=== PATIENT | male | born 1995 | race Caucasian/White ===

== ENCOUNTER 2018-09-28 23:42 | Emergency (ER) | payer OTHER ==
[2018-09-28 23:47] VITALS: BP 111/61; PULSE 92; TEMP 98.4; BMI 26.6
[2018-09-29] MEDS ORDERED: KETOROLAC TROMETHAMINE 30 MG/1 ML VIAL IM ONE (00:39)
[2018-09-29] MEDS ORDERED: KETOROLAC TROMETHAMINE 30 MG/1 ML VIAL ONE (00:44)
--- NOTE | 2018-09-29 01:14 | PDOC ---
History of Present Illness - General Chief Complaint: Abscess Boil Stated Complaint: CYST ON LOWER BACK Time Seen by Provider: 09/29/18 00:21 History Source: Patient Exam Limitations: No Limitations - History of Present Illness Initial Comments: 09/29/18 01:08 HISTORY OF PRESENT ILLNESS: 23-year-old male denies medical history presents emergency department for evaluation of "bump" noted to his lower back. Patient denies any fevers or chills. He has not sought care prior to this event. There is no discharge or drainage according to the patient No recent travel or sick contacts. PAST MEDICAL HISTORY: Denies past medical history SURGICAL HISTORY: Denies ALLERGIES: No known drug allergies REVIEW OF SYSTEMS General/Constitutional: Denies fever or chills. Denies weakness, weight change. HEENT: Denies change in vision. Denies ear pain or discharge. Denies sore throat. Cardiovascular: Denies chest pain or shortness of breath. Respiratory: Denies cough, wheezing, or hemoptysis. Gastrointestinal: Denies nausea, vomiting, diarrhea or constipation. Denies rectal bleeding. Genitourinary: Denies dysuria, frequency, or change in urination. Musculoskeletal: Denies joint or muscle swelling or pain. Denies neck or back pain. Skin and breasts: see HPI Neurologic: Denies headache, vertigo, loss of consciousness, or loss of sensation. Psychiatric: Denies depression or anxiety. Endocrine: Denies increased thirst. Denies abnormal weight change. Hematologic/Lymphatic: Denies anemia, easy bleeding, or history of blood clots. Allergic/Immunologic: Denies hives or skin allergy. Denies latex allergy. PHYSICAL EXAM General Appearance: Well-appearing, appropriately dressed. No apparent distress , no intoxication. Respiratory/Chest: Lungs CTAB. No shortness of breath, chest tenderness, respiratory distress, accessory muscle use. No crackles, rales, rhonchi, stridor , wheezing, dullness Cardiovascular: RRR. S1, S2. No JVD, murmur, bradycardia, tachycardia. Integumentary: 3 cm x 2 cm ovoid area of fluctuance present at the cleft. 3.5 cm x 2.5 cm ovoid area of induration present. 09/29/18 01:15 Past History - Past Medical History Allergies/Adverse Reactions: Allergies Allergy/AdvReac Type Severity Reaction Status Date / Time No Known Allergies Allergy Verified 09/29/18 00:42 Home Medications: Ambulatory Orders NK [No Known Home Medication] 09/29/18 - Suicide/Smoking/Psychosocial Hx Smoking History: Unknown if ever smoked *Physical Exam - Vital Signs Last Vital Signs Temp Pulse Resp BP Pulse Ox 98.4 F 92 H 20 111/61 95 09/28/18 23:44 09/28/18 23:44 09/28/18 23:44 09/28/18 23:44 09/28/18 23:44 Procedures - Consent Consent obtained: Verbal, From Patient - Incision and Drainage I&D Site: Bilateral: Other (pilonidal abscess at gluteal cleft) Betadine cleansed: Yes Anesthesia: 1% Lidocaine Volume(ml): 5 Blade Size: 11 Attempts: 1 Iodinated Packin/ in Complications: none Dressing: Yes (DSD) Progress: 09/29/18 01:14 pt tolerated well. Abscess wall removed. Medical Decision Making - Medical Decision Making 09/29/18 01:08 A/P: 23-year-old male with pilonidal abscess Toradol 30 mg IM I and D-see procedure note for details Wound culture As there is no cellulitis present I will defer antibiotics at this time. Patient aware that he may be started on antibiotics one wound culture returns and based on evaluation of abscess when he returns in 2 days. Discharge home 09/29/18 01:17 *DC/Admit/Observation/Transfer Diagnosis at time of Disposition: Pilonidal abscess of cleft - Discharge Dispostion Disposition: HOME Condition at time of disposition: Stable Decision to Admit order: No - Referrals Referrals: Sara Odell [Primary Care Provider] - - Patient Instructions Printed Discharge Instructions: DI for Incision and Drainage of a Skin Abscess Additional Instructions: With packing present in the wound that was done today. Do not remove this packing. If it comes out on its own that is acceptable. Return to your primary doctor or the emergency department in 2 days for reevaluation of wound. Return to emergency department sooner if he develop any fevers, chills, recurrent pain, discharge or drainage from the wounds, redness or streaking under back or for any other concerns. Thank you very much for choosing us to provide your emergent health care needs. - Post Discharge Activity Forms/Work/School Notes: Back to Work
== END 2018-09-29 01:34 | disposition home or self-care (01) ==
LOC: JER 23:42
PROC: 3E0233Z Introduction of Anti-inflammatory into Muscle, Percutaneous Approach (ICD-10-PCS; principal; 2018-09-28)
PROC: 0H98XZZ Drainage of Buttock Skin, External Approach (ICD-10-PCS; 2018-09-28)
DX: L05.01 Pilonidal cyst with abscess (principal)
CPT/HCPCS: 10080; 87070; 87076; 87077; 87205; 96372; 99282-25

== ENCOUNTER 2018-10-01 15:25 | Emergency (ER) | payer OTHER ==
--- NOTE | 2018-10-01 15:41 | PDOC ---
Rapid Medical Evaluation Chief Complaint: Wound Time Seen by Provider: 10/01/18 15:40 Medical Evaluation: Allergies Allergy/AdvReac Type Severity Reaction Status Date / Time No Known Allergies Allergy Verified 10/01/18 15:41 10/01/18 15:41 I have performed a brief in-person evaluation of this patient. The patient presents with a chief complaint of: Pertinent physical exam findings: I have ordered the following: The patient will proceed to the ED for further evaluation.
[2018-10-01 15:43] VITALS: BP 127/79; PULSE 89; TEMP 98.8; BMI 26.6
--- NOTE | 2018-10-01 15:45 | PDOC ---
Rapid Medical Evaluation Chief Complaint: Wound Time Seen by Provider: 10/01/18 15:40 Medical Evaluation: Allergies Allergy/AdvReac Type Severity Reaction Status Date / Time No Known Allergies Allergy Verified 10/01/18 15:41 10/01/18 15:43 I have performed a brief in-person evaluation of this patient. The patient presents with a chief complaint of:wound check, s/p I&D 2 days ago, (normal skin darlene on wound cx), here for wound check. Pain improved. No f/c. [id number] on abx Pertinent physical exam findings:Stable and well rylan, rest of exam deferred I have ordered the following:nothing The patient will proceed to the ED for further evaluation. Discharge Disposition - Diagnosis Wound check, abscess - Referrals - Patient Instructions - Post Discharge Activity
--- NOTE | 2018-10-01 16:21 | PDOC ---
History of Present Illness - General Chief Complaint: Wound Stated Complaint: PACKING REMOVAL Time Seen by Provider: 10/01/18 15:40 - History of Present Illness Initial Comments: 10/01/18 16:19 23-year-old male presents for a wound check. He had a pilonidal abscess drained 2 days ago here and he is not on antibiotics. He started to develop chills yesterday. No night sweats no fevers Past History - Past Medical History Allergies/Adverse Reactions: Allergies Allergy/AdvReac Type Severity Reaction Status Date / Time No Known Allergies Allergy Verified 10/01/18 15:41 Home Medications: Ambulatory Orders Cephalexin [Keflex] 500 mg PO QID #40 capsule 10/01/18 Sulfamethoxazole/Trimethoprim [Bactrim Ds -] 1 tab PO BID #14 tablet 10/01/18 COPD: No - Immunization History Immunization Up to Date: Yes - Suicide/Smoking/Psychosocial Hx Smoking History: Never smoked Hx Alcohol Use: No Drug/Substance Use Hx: No Review of Systems - Review of Systems Constitutional: Yes: See HPI, Chills. No: Diaphoresis, Fever, Malaise, Night Sweats *Physical Exam - Vital Signs Last Vital Signs Temp Pulse Resp BP Pulse Ox 98.8 F 89 17 127/79 98 10/01/18 15:41 10/01/18 15:41 10/01/18 15:41 10/01/18 15:41 10/01/18 15:41 - Physical Exam Comments: 10/01/18 16:19 There is mild erythema and induration surrounding the area of the abscess. Packing was removed. Purulent material continues to drain. No packing was replaced. Medical Decision Making - Medical Decision Making 10/01/18 16:20 Recommended dry sterile dressing changes twice a day encourage abscess drainage. Return to the emergency room for worsening symptoms I placed the patient on a course of Bactrim and Keflex and I will have him follow-up with general surgery with instructions to return to the emergency room should symptoms worsen. *DC/Admit/Observation/Transfer Diagnosis at time of Disposition: Wound check, abscess - Discharge Dispostion Disposition: HOME Condition at time of disposition: Stable Decision to Admit order: No - Prescriptions Prescriptions: Cephalexin [Keflex] 500 mg PO QID #40 capsule Sulfamethoxazole/Trimethoprim [Bactrim Ds -] 1 tab PO BID #14 tablet - Referrals Referrals: Levar Dumont MD [Staff Physician] - - Patient Instructions Additional Instructions: Change the dressing twice daily. Return to the emergency room for worsening symptoms. Follow-up with general surgery in 1-2 days for further evaluation and treatment options. Please take and finish the entire course of the antibiotics that was prescribed to Tylenol and Motrin as directed for pain. - Post Discharge Activity
== END 2018-10-01 16:35 | disposition home or self-care (01) ==
LOC: JERFT 15:25
DX: Z48.817 Encounter for surgical aftercare following surgery on the skin and subcutaneous tissue (principal); Z48.01 Encounter for change or removal of surgical wound dressing
CPT/HCPCS: 99281-25

== ENCOUNTER 2022-06-06 20:48 | Emergency (ER) | payer OTHER ==
[2022-06-06 20:53] VITALS: BP 124/77; PULSE 83; RESP 17; TEMP 98; BMI 32.6
[2022-06-06] MEDS ORDERED: KETOROLAC TROMETHAMINE 30 MG/1 ML VIAL IM ONE (22:15)
[2022-06-06] MEDS ORDERED: METHOCARBAMOL 500 MG TABLET PO ONE (22:15)
[2022-06-06] MEDS ORDERED: KETOROLAC TROMETHAMINE 30 MG/1 ML VIAL ONE (22:17)
[2022-06-06] MEDS ORDERED: METHOCARBAMOL 500 MG TABLET ONE (22:17)
== END 2022-06-07 02:17 | disposition home or self-care (01) ==
LOC: JERFT 20:48
PROC: 3E0233Z Introduction of Anti-inflammatory into Muscle, Percutaneous Approach (ICD-10-PCS; principal; 2022-06-06)
DX: S00.83XA Contusion of other part of head, initial encounter (principal); J01.00 Acute maxillary sinusitis, unspecified; Y04.0XXA Assault by unarmed brawl or fight, initial encounter
CPT/HCPCS: 70486-TC; 99284-25